=== PATIENT | female | born 1955 | race African-American/Black ===

== ENCOUNTER 2017-10-13 13:17 | Emergency (ER) | payer MEDICARE ==
[~2017-10-13] VITALS: Ht 157.5 cm; Wt 42.6 kg
[2017-10-13 13:40] VITALS: BP 110/72
[2017-10-13] MEDS ORDERED: NALBUPHINE HCL 10 MG/1ml INJECTION IM ONE (14:45)
[2017-10-13] MEDS ORDERED: MEPERIDINE HCL (25 MG/ML) 1ML VIAL IM ONE (16:15)
[2017-10-13] MEDS ORDERED: hydrOXYzine HCL 25 MG/ML VL IM ONE (16:15)
== END 2017-10-13 16:52 | disposition home or self-care (01) ==
LOC: ER 13:17
DX: G89.29 Other chronic pain (principal); M54.9 Dorsalgia, unspecified; F17.210 Nicotine dependence, cigarettes, uncomplicated; Z88.0 Allergy status to penicillin; Z88.6 Allergy status to analgesic agent
CPT/HCPCS: 96372; 99284; J2175; J2300

== ENCOUNTER 2018-04-25 12:55 | Emergency (ER) | payer MEDICARE ==
[~2018-04-25] VITALS: Ht 157.5 cm; Wt 40.8 kg
[2018-04-25 12:59] VITALS: BP 149/92
== END 2018-04-25 13:50 | disposition home or self-care (01) ==
LOC: ER 12:55
DX: E07.9 Disorder of thyroid, unspecified (principal); Z76.0 Encounter for issue of repeat prescription; Z88.0 Allergy status to penicillin

== ENCOUNTER 2019-05-29 13:24 | Emergency (ER) | payer MEDICARE, OTHER ==
[~2019-05-29] VITALS: Ht 157.5 cm; Wt 59.0 kg
[2019-05-29 13:46] VITALS: BP 129/75
== END 2019-05-29 16:24 | disposition left against medical advice (07) ==
LOC: ER 13:24
DX: R53.1 Weakness (principal); Z76.0 Encounter for issue of repeat prescription; Z53.21 Procedure and treatment not carried out due to patient leaving prior to being seen by health care provider